=== PATIENT | male | born 1960 ===

== ENCOUNTER 2018-02-12 20:29 | Emergency (ER) | payer SELFPAY ==
[2018-02-12 20:44] VITALS: O2SAT 98
[2018-02-12 21:01] LABS: BASO # 0.1 K/uL (0.0-0.2); BASO % 0.5 % (0.0-2.0); EOS % 0.1 % (0.0-4.0); HEMOGLOBIN 14.4 g/dL (12.0-18.0); LYMPH # 0.8 K/uL (1.0-4.3); LYMPH % 6.8 % (20.0-40.0); MEAN CELL VOLUME 88.6 fL (80.0-94.0); MONO # 0.4 K/uL (0.0-0.8); MONO % 3.5 % (0.0-10.0); NEUT % 89.1 % (50.0-75.0); PLATELET COUNT 280 K/uL (130-400); RBC 4.65 Mil/uL (4.40-5.90); RED CELL DISTRIBUTION WIDTH 13.6 % (11.5-14.5); WHITE BLOOD COUNT 11.3 K/uL (4.8-10.8)
[2018-02-12 21:05] LABS: SQUAMOUS EPITHIAL < 1 /hpf (0-5); URINE BACTERIA RARE (<OCC); URINE BILIRUBIN NEGATIVE (NEGATIVE); URINE BLOOD 2+ (NEGATIVE); URINE CLARITY Clear (Clear); URINE COLOR Straw (YELLOW); URINE GLUCOSE (UA) NORMAL (Normal); URINE LEUKOCYTE ESTERASE NEG Leu/uL (Negative); URINE PROTEIN 1+ mg/dL (NEGATIVE); URINE UROBILINOGEN NORMAL mg/dL (0.2-1.0)
--- NOTE | 2018-02-12 21:05 | C.PDOC ---
History Of Present Illness 57 y/o male presents to ED for complaints of urinary retention. Patient reports he is unable to void since this morning. He isnow having significant abdominal discomfort. Denies nausea, vomiting, or dysuria. Patient states he had Hx of difficulty urinating 2 years ago but did not seek medical attention and after several days it resolved on its own. Time Seen by Provider: 02/12/18 20:42 Chief Complaint (Nursing): Male Genitourinary History Per: Patient History/Exam Limitations: no limitations Onset/Duration Of Symptoms: Hrs Current Symptoms Are (Timing): Still Present Quality Of Discomfort: "Pain" Associated Symptoms: denies: Fever, Chills, Nausea, Vomiting, Diarrhea Alleviating Factors: None Recent travel outside of the [place]: No Past Medical History Reviewed: Historical Data, Nursing Documentation, Vital Signs Vital Signs: Last Vital Signs Temp 97.9 F 02/12/18 20:35 Pulse 84 02/12/18 20:35 Resp 16 02/12/18 20:35 BP 153/95 H 02/12/18 20:35 Pulse Ox 98 02/12/18 21:19 - Medical History PMH: No Chronic Diseases Surgical History: No Surg Hx Family History: States: No Known Family Hx - Social History Hx Alcohol Use: Yes Hx Substance Use: No - Immunization History Hx Tetanus Toxoid Vaccination: No Hx Influenza Vaccination: No Hx Pneumococcal Vaccination: No Review Of Systems Constitutional: Negative for: Fever, Chills Gastrointestinal: Negative for: Nausea, Vomiting, Abdominal Pain, Diarrhea Genitourinary: Positive for: Other (Urinary retention ). Negative for: Dysuria Skin: Negative for: Rash Neurological: Negative for: Weakness, Numbness Physical Exam - Physical Exam Appears: Non-toxic, In Acute Distress Skin: Warm, Dry Eye(s): bilateral: Normal Inspection, PERRL Oral Mucosa: Moist Chest: Symmetrical, No Tenderness Cardiovascular: Rhythm Regular Respiratory: No Decreased Breath Sounds, No Rales, No Rhonchi, No Wheezing Gastrointestinal/Abdominal: Soft, Tenderness (Suprapubic midline), Other ( Bladder tender and distended; 700mL urine in bladder scan. ) Neurological/Psych: Oriented x3, Normal Speech, Normal Cognition Gait: Steady ED Course And Treatment - Laboratory Results Result Diagrams: 02/12/18 20:58 02/12/18 20:58 Lab Interpretation: No Acute Changes O2 Sat by Pulse Oximetry: 98 (RA) Pulse Ox Interpretation: Normal Progress Note: Cardenas catheter inserted without difficulty. Reevaluation Time: 21:13 Reassessment Condition: Improved Medical Decision Making Medical Decision Making: Ordered blood work and urinalysis. Disposition Counseled Patient/Family Regarding: Studies Performed, Diagnosis, Need For Followup, Rx Given - Disposition Referrals: Steve Velasco Jr., MD [Staff Provider] - Disposition: HOME/ ROUTINE Disposition Time: 21:16 Condition: IMPROVED Prescriptions: Tamsulosin [Flomax] 0.4 mg PO DAILY #30 cap Instructions: Urinary Retention Forms: [employer] (Montserratian) Print Language: KINYARWANDA - Clinical Impression Clinical Impression: Acute urinary retention - Scribe Statement The provider has reviewed the documentation as recorded by the Scribe Maryam Bender All medical record entries made by the Scribe were at my direction and personally dictated by me. I have reviewed the chart and agree that the record accurately reflects my personal performance of the history, physical exam, medical decision making, and the department course for this patient. I have also personally directed, reviewed, and agree with the discharge instructions and disposition.
[2018-02-12 21:16] LABS: ALB/GLOB RATIO 1.2 (1.0-2.1); ALBUMIN 4.6 g/dL (3.5-5.0); ALT/SGPT 48 U/L (21-72); AST/SGOT 34 U/L (17-59); BLOOD UREA NITROGEN 15 mg/dL (9-20); CALCIUM 9.6 mg/dl (8.6-10.4); GFR AFRICAN-AMERICAN > 60; GFR NON-AFRICAN AMERICAN > 60
[2018-02-12 21:21] LABS: BANDS 1 % (0-2); LYMPHOCYTE 3 % (20-40); MONOCYTE 4 % (0-10); NEUTROPHIL 87 % (50-75); PLATELET ESTIMATE NORMAL (NORMAL); REACTIVE LYMPHOCYTES 5 % (0-0); TOTAL CELLS COUNTED 100
[2018-02-12 21:39] VITALS: BP 136/74; PULSE 82; RESP 18; TEMP 98.3
== END 2018-02-12 21:33 | disposition home or self-care (01) ==
LOC: C.ER 20:29
DX: R33.9 Retention of urine, unspecified (principal)

== ENCOUNTER 2018-04-16 04:52 | Emergency (ER) | payer OTHER ==
[2018-04-16 06:38] LABS: URINE BILIRUBIN NEGATIVE (NEGATIVE); URINE BLOOD 3+ (NEGATIVE); URINE COLOR Straw (YELLOW); URINE GLUCOSE (UA) NORMAL (Normal); URINE LEUKOCYTE ESTERASE NEG Leu/uL (Negative); URINE PROTEIN NEGATIVE (NEGATIVE); URINE UROBILINOGEN NORMAL mg/dL (0.2-1.0)
[2018-04-16 06:48] LABS: URINE CLARITY Hazy (Clear)
--- NOTE | 2018-04-16 06:51 | C.PDOC ---
History Of Present Illness 58 year old male presents to the ED for evaluation of urinary retention, last time he urinated was at midnight. Patient reports he had prior history of urinary retention in January. At that time patient went to see his urologist Dr. Pruett in January, patient reports he did not follow the recommendations and has not taken flomax. Patient denies fever, chills, nausea, vomit, diarrhea, back pain. Time Seen by Provider: 04/16/18 04:53 Chief Complaint (Nursing): Male Genitourinary History Per: Patient History/Exam Limitations: no limitations Onset/Duration Of Symptoms: Days Severity: Severe Quality Of Discomfort: "Pain" Associated Symptoms: Urinary Symptoms Alleviating Factors: None Recent travel outside of the [place]: No Additional History Per: Patient Past Medical History Reviewed: Historical Data, Nursing Documentation, Vital Signs Vital Signs: Last Vital Signs Temp 98.2 F 04/16/18 05:01 Pulse 112 H 04/16/18 05:01 Resp 22 04/16/18 05:01 BP 202/113 H 04/16/18 05:01 Pulse Ox 98 04/16/18 06:51 - Medical History PMH: No Chronic Diseases Surgical History: No Surg Hx Family History: States: Unknown Family Hx - Social History Hx Alcohol Use: Yes Hx Substance Use: No - Immunization History Hx Tetanus Toxoid Vaccination: No Hx Influenza Vaccination: No Hx Pneumococcal Vaccination: No Review Of Systems Constitutional: Negative for: Fever, Chills Cardiovascular: Negative for: Chest Pain, Palpitations Respiratory: Negative for: Cough, Shortness of Breath Gastrointestinal: Positive for: Abdominal Pain. Negative for: Nausea, Vomiting Genitourinary: Positive for: Other (retention) Skin: Negative for: Rash Physical Exam - Physical Exam Appears: Non-toxic, In Acute Distress (moderate to severe due to pain) Skin: Normal Color, Warm, Dry, Diaphoretic Head: Atraumatic, Normacephalic Eye(s): bilateral: Normal Inspection Oral Mucosa: Moist Neck: Normal ROM, Supple Chest: Symmetrical Cardiovascular: Rhythm Regular Respiratory: Normal Breath Sounds, No Rales, No Rhonchi, No Wheezing Gastrointestinal/Abdominal: Soft, Tenderness (suprapubic), Distention, No Guarding, No Rebound Extremity: Normal ROM, No Tenderness, No Swelling Neurological/Psych: Oriented x3, Normal Speech Gait: Steady ED Course And Treatment O2 Sat by Pulse Oximetry: 98 (ON RA) Pulse Ox Interpretation: Normal Progress Note: Plan: - Flomax 0.4 mg PO. - Urine culture. - UA. - Cardenas Disposition Counseled Patient/Family Regarding: Studies Performed, Diagnosis, Need For Followup, Rx Given - Disposition Referrals: Steve Velasco Jr., MD [Staff Provider] - Disposition Time: 06:50 Additional Instructions: FOLLOW UP WITH YOUR UROLOGIST WITHIN 1 WEEK USE MEDICATION DIRECTED RETURN TO EMERGENCY ROOM IF SYMPTOMS WORSEN SEGUIMIENTO CON MARTIN UROLOGIST DENTRO DE 1 SEMANA USE MEDICAMENTOS SEGN LO INDICADO REGRESE AL DAVID DE EMERGENCIA SI LOS SNTOMAS EMPEORAN Prescriptions: Tamsulosin [Flomax] 0.4 mg PO DAILY #5 cap Instructions: Urinary Retention (DC) Forms: [employer] (Ugandan) Print Language: ALBANIAN - Clinical Impression Clinical Impression: Acute urinary retention - Scribe Statement The provider has reviewed the documentation as recorded by the Scribe Clifton Porter All medical record entries made by the Scribe were at my direction and personally dictated by me. I have reviewed the chart and agree that the record accurately reflects my personal performance of the history, physical exam, medical decision making, and the department course for this patient. I have also personally directed, reviewed, and agree with the discharge instructions and disposition.
--- NOTE | 2018-04-16 06:51 | C.PDOC ---
History Of Present Illness 58 year old male presents to the ED for evaluation of urinary retention, last time he urinated was at midnight. Patient reports he had prior history of urinary retention in January. At that time patient went to see his urologist Dr. Pruett in January, patient reports he did not follow the recommendations and has not taken flomax. Patient denies fever, chills, nausea, vomit, diarrhea, back pain. Time Seen by Provider: 04/16/18 04:53 Chief Complaint (Nursing): Male Genitourinary History Per: Patient History/Exam Limitations: no limitations Onset/Duration Of Symptoms: Days Current Symptoms Are (Timing): Still Present Severity: Moderate Quality Of Discomfort: "Pain" Associated Symptoms: Urinary Symptoms Alleviating Factors: None Recent travel outside of the [place]: No Additional History Per: Patient Past Medical History Reviewed: Historical Data, Nursing Documentation, Vital Signs Vital Signs: Last Vital Signs Temp 98.2 F 04/16/18 05:01 Pulse 112 H 04/16/18 05:01 Resp 22 04/16/18 05:01 BP 202/113 H 04/16/18 05:01 Pulse Ox 98 04/16/18 05:01 - Medical History PMH: No Chronic Diseases Surgical History: No Surg Hx Family History: States: Unknown Family Hx - Social History Hx Alcohol Use: Yes Hx Substance Use: No - Immunization History Hx Tetanus Toxoid Vaccination: No Hx Influenza Vaccination: No Hx Pneumococcal Vaccination: No Review Of Systems Constitutional: Negative for: Fever, Chills Cardiovascular: Negative for: Chest Pain, Palpitations Respiratory: Negative for: Cough, Shortness of Breath Gastrointestinal: Positive for: Abdominal Pain. Negative for: Nausea, Vomiting Genitourinary: Positive for: Other (retention) Musculoskeletal: Negative for: Back Pain Neurological: Negative for: Weakness, Numbness Physical Exam - Physical Exam Appears: Non-toxic, In Acute Distress (moderate to severe pain) Skin: Normal Color, Warm, Dry, Diaphoretic Head: Atraumatic, Normacephalic Eye(s): bilateral: Normal Inspection Oral Mucosa: Moist Neck: Normal ROM, Supple Chest: Symmetrical Cardiovascular: Rhythm Regular Respiratory: Normal Breath Sounds, No Rales, No Rhonchi, No Wheezing Gastrointestinal/Abdominal: Soft, Tenderness (suprapubic), Distention, No Guarding, No Rebound Extremity: Normal ROM, No Tenderness, No Swelling Neurological/Psych: Oriented x3, Normal Speech Gait: Steady ED Course And Treatment O2 Sat by Pulse Oximetry: 98 (ON RA) Pulse Ox Interpretation: Normal Progress Note: Plan: - Flomax 0.4 mg PO. - Urine culture. - UA. - Cardenas Disposition - Disposition - Scribe Statement The provider has reviewed the documentation as recorded by the Scribe Clifton Porter All medical record entries made by the Scribe were at my direction and personally dictated by me. I have reviewed the chart and agree that the record accurately reflects my personal performance of the history, physical exam, medical decision making, and the department course for this patient. I have also personally directed, reviewed, and agree with the discharge instructions and disposition.
[2018-04-16 07:11] VITALS: BP 148/56; PULSE 78; RESP 12; O2SAT 100
[2018-04-16 07:12] VITALS: TEMP 98.6
== END 2018-04-16 07:11 | disposition home or self-care (01) ==
LOC: C.ER 04:52
DX: R33.9 Retention of urine, unspecified (principal)

== ENCOUNTER 2018-06-04 18:45 | Emergency (ER) | payer OTHER ==
[2018-06-04 18:59] VITALS: BP 160/84; PULSE 80; RESP 20; TEMP 98.3; O2SAT 98
[2018-06-04 20:00] LABS: URINE BILIRUBIN NEGATIVE (NEGATIVE); URINE BLOOD 3+ (NEGATIVE); URINE CLARITY Clear (Clear); URINE COLOR Straw (YELLOW); URINE GLUCOSE (UA) NORMAL (Normal); URINE LEUKOCYTE ESTERASE NEG Leu/uL (Negative); URINE PROTEIN NEGATIVE (NEGATIVE); URINE UROBILINOGEN NORMAL mg/dL (0.2-1.0)
--- NOTE | 2018-06-04 20:16 | C.PDOC ---
History Of Present Illness 58 year old male presents to ED complaining of urinary retention for the past several hours prior to arrival. Patient reports he is unable to urinate. Denies fever, vomiting, abdominal pain, shortness of breath, weakness, numbness. Time Seen by Provider: 06/04/18 19:19 Chief Complaint (Nursing): Male Genitourinary History Per: Patient History/Exam Limitations: no limitations Onset/Duration Of Symptoms: Hrs Current Symptoms Are (Timing): Still Present Past Medical History Reviewed: Historical Data, Nursing Documentation, Vital Signs Vital Signs: Last Vital Signs Temp 98.3 F 06/04/18 18:57 Pulse 80 06/04/18 18:57 Resp 20 06/04/18 18:57 BP 160/84 H 06/04/18 18:57 Pulse Ox 98 06/04/18 20:20 Surgical History: No Surg Hx Family History: States: No Known Family Hx - Social History Hx Alcohol Use: Yes Hx Substance Use: No - Immunization History Hx Tetanus Toxoid Vaccination: No Hx Influenza Vaccination: No Hx Pneumococcal Vaccination: No Review Of Systems Except As Marked, All Systems Reviewed And Found Negative. Constitutional: Negative for: Fever Respiratory: Negative for: Shortness of Breath Gastrointestinal: Negative for: Vomiting, Abdominal Pain Genitourinary: Positive for: Other (urinary retention ) Neurological: Negative for: Weakness, Numbness Physical Exam - Physical Exam Appears: Non-toxic, No Acute Distress Skin: Warm, Dry Head: Atraumatic, Normacephalic Eye(s): bilateral: Normal Inspection Neck: Supple Chest: Symmetrical Cardiovascular: Rhythm Regular Respiratory: Normal Breath Sounds Gastrointestinal/Abdominal: Soft, No Tenderness, Distention (suprapubic ) Neurological/Psych: Oriented x3, Normal Speech, Normal Cognition ED Course And Treatment O2 Sat by Pulse Oximetry: 98 (RA) Pulse Ox Interpretation: Normal Medical Decision Making Medical Decision Making: Plan: * Urinalysis Disposition - Disposition Referrals: Steve Velasco Jr., MD [Staff Provider] - [facility] [Outside] Disposition: HOME/ ROUTINE Disposition Time: 20:18 Condition: GOOD Additional Instructions: Follow up with the medical doctor within 1-2 days. Return if worsened. 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 - Scribe Statement The provider has reviewed the documentation as recorded by the Scribe Elijah Santos All medical record entries made by the Russ were at my direction and personally dictated by me. I have reviewed the chart and agree that the record accurately reflects my personal performance of the history, physical exam, medical decision making, and the department course for this patient. I have also personally directed, reviewed, and agree with the discharge instructions and disposition.
== END 2018-06-04 20:24 | disposition home or self-care (01) ==
LOC: C.ER 18:45
DX: R33.9 Retention of urine, unspecified (principal)

== ENCOUNTER 2018-07-02 19:51 | Emergency (ER) | payer OTHER ==
[2018-07-02 20:11] VITALS: TEMP 97.8
[2018-07-02 20:20] VITALS: O2SAT 98
--- NOTE | 2018-07-02 20:51 | C.PDOC ---
History Of Present Illness 58-year-old male, presents to the emergency department with complaints of urinary retention. Patient states he has not passed urine since 15:00. Patient has not been able to follow with a urologist due to lack of insurance. Denies fever, nausea/vomiting or any other associated symptoms. No other complaints at this time. Time Seen by Provider: 07/02/18 20:19 Chief Complaint (Nursing): Male Genitourinary History Per: Patient History/Exam Limitations: no limitations Onset/Duration Of Symptoms: Hrs Current Symptoms Are (Timing): Still Present Past Medical History Reviewed: Historical Data, Nursing Documentation, Vital Signs Vital Signs: Last Vital Signs Temp 97.8 F 07/02/18 20:02 Pulse 100 H 07/02/18 20:02 Resp 18 07/02/18 20:02 BP 183/120 H 07/02/18 20:02 Pulse Ox 98 07/02/18 20:02 Family History: States: No Known Family Hx - Social History Hx Alcohol Use: Yes Hx Substance Use: No - Immunization History Hx Tetanus Toxoid Vaccination: No Hx Influenza Vaccination: No Hx Pneumococcal Vaccination: No Review Of Systems Constitutional: Negative for: Fever Gastrointestinal: Negative for: Vomiting Genitourinary: Positive for: Other (retention) Neurological: Negative for: Weakness, Numbness Physical Exam - Physical Exam Appears: Non-toxic, No Acute Distress Skin: Warm, Dry, No Rash Head: Atraumatic, Normacephalic Eye(s): bilateral: Normal Inspection, PERRL, EOMI Nose: Normal Oral Mucosa: Moist Lips: Normal Appearing Neck: Normal ROM Cardiovascular: Rhythm Regular, No Murmur Respiratory: Normal Breath Sounds, No Accessory Muscle Use Gastrointestinal/Abdominal: Soft, Distention Back: Normal Inspection Extremity: Normal ROM, No Deformity Neurological/Psych: Oriented x3, Normal Speech ED Course And Treatment O2 Sat by Pulse Oximetry: 98 Pulse Ox Interpretation: Normal (RA) Progress Note: Cardenas catheter inserted and 800mL urine collected. Pt felt immediate relief. He is refusing leg bag. Vital signs repeated and stable. Pt has seen Dr Velasco in the past and is due to make appointment for testing but has been waiting for insurance. The importance of follow up was reiterated to pt who will follow up with Dr Velasco or other as allowed by his insurance. Return precautions discussed and understood by pt Reassessment Condition: Improved Disposition Counseled Patient/Family Regarding: Diagnosis, Need For Followup, Rx Given - Disposition Referrals: Steve Velasco Jr., MD [Staff Provider] - Disposition: HOME/ ROUTINE Disposition Time: 21:28 Condition: STABLE Additional Instructions: Please follow up with Dr Velasco or any Urologist as allowed by your insurance Return to ER if worse Instructions: Urinary Retention (DC) Forms: [employer] (Ugandan) Print Language: EAST TIMORESE - Clinical Impression Clinical Impression: Acute urinary retention - Scribe Statement The provider has reviewed the documentation as recorded by the Scribe (Emily Andrews) All medical record entries made by the Scribe were at my direction and personally dictated by me. I have reviewed the chart and agree that the record accurately reflects my personal performance of the history, physical exam, medical decision making, and the department course for this patient. I have also personally directed, reviewed, and agree with the discharge instructions and disposition.
[2018-07-02 21:13] LABS: SQUAMOUS EPITHIAL < 1 /hpf (0-5); URINE BILIRUBIN NEGATIVE (NEGATIVE); URINE BLOOD 2+ (NEGATIVE); URINE CLARITY Clear (Clear); URINE COLOR Straw (YELLOW); URINE GLUCOSE (UA) NORMAL (Normal); URINE LEUKOCYTE ESTERASE NEG Leu/uL (Negative); URINE PROTEIN NEGATIVE (NEGATIVE); URINE UROBILINOGEN NORMAL mg/dL (0.2-1.0)
[2018-07-02 21:23] VITALS: BP 139/89; PULSE 85; RESP 16
== END 2018-07-02 21:40 | disposition home or self-care (01) ==
LOC: C.ER 19:51
DX: R33.9 Retention of urine, unspecified (principal)

== ENCOUNTER 2018-07-07 11:53 | Emergency (ER) | payer OTHER ==
[2018-07-07 12:27] VITALS: BMI 30.2
[2018-07-07 12:43] VITALS: RESP 18
--- NOTE | 2018-07-07 13:30 | C.PDOC ---
History Of Present Illness 58 year old male present so the ED urinary retention since this morning. He reports his last urination prior to 9am today. On arrival patient appears very uncomfortable, states this is the 5th incidence of similar symptoms. Patient notes he has tried to see urology but due to insurance, has been unable to get an appointment. He describes pain as severe. Denies any associated nausea, vomiting, fever or chills. Time Seen by Provider: 07/07/18 12:52 Chief Complaint (Nursing): Male Genitourinary History Per: Patient History/Exam Limitations: no limitations Onset/Duration Of Symptoms: Hrs Current Symptoms Are (Timing): Still Present Severity: Severe Quality Of Discomfort: "Pain" Past Medical History Reviewed: Historical Data, Nursing Documentation, Vital Signs Vital Signs: Last Vital Signs Temp 99.0 F 07/07/18 12:27 Pulse 97 H 07/07/18 12:27 Resp 18 07/07/18 12:27 BP 196/126 H 07/07/18 12:27 Pulse Ox 98 07/07/18 12:27 Family History: States: Unknown Family Hx - Social History Hx Alcohol Use: Yes Hx Substance Use: No - Immunization History Hx Tetanus Toxoid Vaccination: No Hx Influenza Vaccination: No Hx Pneumococcal Vaccination: No Review Of Systems Except As Marked, All Systems Reviewed And Found Negative. Constitutional: Negative for: Fever, Chills Gastrointestinal: Positive for: Abdominal Pain. Negative for: Nausea, Vomiting Genitourinary: Positive for: Other (Urinary retention) Physical Exam - Physical Exam Appears: Non-toxic, In Acute Distress (appears very uncomfortable) Skin: Warm, Dry, No Rash Head: Atraumatic, Normacephalic Eye(s): bilateral: Normal Inspection Oral Mucosa: Moist Neck: Normal ROM Chest: Symmetrical Cardiovascular: Rhythm Regular, No Murmur Respiratory: Normal Breath Sounds, No Rales, No Rhonchi, No Wheezing Gastrointestinal/Abdominal: Tenderness (to suprapubic region), Distention (abdomen appears firm and distended) Back: No CVA Tenderness, No Vertebral Tenderness Extremity: Bilateral: Atraumatic, Normal ROM Neurological/Psych: Oriented x3, Normal Speech Gait: Steady ED Course And Treatment O2 Sat by Pulse Oximetry: 98 (RA) Pulse Ox Interpretation: Normal Medical Decision Making Medical Decision Making: Impression: Urinary retention Plan: 16Fr Cardenas inserted by MARLEN Saucedo. Initial residual volume 750cc urine. Progress/Updates: [address] Km Phelan who states patient will see the patient in his office. Can do Self-pay. Recommends flomax. On re-examination, patient is resting comfortably in no acute distress. Patient reports improvement of symptoms. Note the patient does not want leg bag to go home with. I explain the reason for leg bag and that retention can recur but he declined. Patient feels comfortable going home and will be discharged. Patient given follow up instructions. Instructed to return to ER if symptoms worsen or new symptoms arise. Disposition Counseled Patient/Family Regarding: Diagnosis, Need For Followup, Rx Given - Disposition Referrals: Kaleb Phelan MD [Staff Provider] - Disposition: HOME/ ROUTINE Disposition Time: 13:35 Condition: STABLE Additional Instructions: Ve a goyo al urlogo Dr. Km Phelan en holcomb oficina. Tendrs que pagar por la visita. 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 - Scribe Statement The provider has reviewed the documentation as recorded by the Scribe (Krissy Huynh) All medical record entries made by the Scribe were at my direction and personally dictated by me. I have reviewed the chart and agree that the record accurately reflects my personal performance of the history, physical exam, medical decision making, and the department course for this patient. I have also personally directed, reviewed, and agree with the discharge instructions and disposition.
[2018-07-07 14:05] LABS: SQUAMOUS EPITHIAL < 1 /hpf (0-5); URINE BACTERIA RARE (<OCC); URINE BILIRUBIN NEGATIVE (NEGATIVE); URINE BLOOD 3+ (NEGATIVE); URINE CLARITY Clear (Clear); URINE COLOR Straw (YELLOW); URINE GLUCOSE (UA) NORMAL (Normal); URINE LEUKOCYTE ESTERASE NEG Leu/uL (Negative); URINE PROTEIN NEGATIVE (NEGATIVE); URINE UROBILINOGEN NORMAL mg/dL (0.2-1.0)
[2018-07-07 14:37] VITALS: BP 149/91; PULSE 63; TEMP 98.7
[2018-07-07 17:01] VITALS: O2SAT 98
== END 2018-07-07 14:40 | disposition home or self-care (01) ==
LOC: C.ER 11:53
DX: R33.9 Retention of urine, unspecified (principal)

== ENCOUNTER 2018-09-04 10:25 | Day surgery (SDC) | payer OTHER ==
[2018-08-31 13:52] VITALS: BMI 26.6
[2018-09-04] MEDS ORDERED: Gentamicin 80 mg in 0.9% NS 160 MG/200 ML BAG IVPB ONE (12:47)
[2018-09-04] MEDS ORDERED: Ciprofloxacin 400mg/200ml D5W 400 MG/200 ML BAG IVPB ONE (12:47)
[2018-09-04] MEDS ORDERED: Lidocaine 2% Jelly (Uro-Jet) ONE (12:47)
[2018-09-04] MEDS ORDERED: Midazolam 2 MG/2 ML VIAL ONE (12:55)
[2018-09-04] MEDS ORDERED: Propofol 10 mg/ml Inj (20 ML) ONE (12:56)
[2018-09-04] MEDS ORDERED: Lidocaine Hydrochloride 5 ML INJ ONE (13:27)
--- NOTE | 2018-09-04 13:36 | PCM.SURG1 ---
Surgeon's Initial Post Op Note - Surgeon's Notes Surgeon: Rod Horticulture Supervisor: RENAY Type of Anesthesia: General LMA Anesthesia Administered By: Staff Pre-Operative Diagnosis: BPH/Elevated psa Operative Findings: Enlarged prostate w merrill Post-Operative Diagnosis: Same Operation Performed: Cysto/us guided prostate bx Specimen/Specimens Removed: 12 core bx Estimated Blood Loss: EBL {In ML}: 0 Blood Products Given: N/A Drains Used: No Drains Post-Op Condition: Good Date of Surgery/Procedure: 09/04/18 Time of Surgery/Procedure: 13:37
[2018-09-04] MEDS ORDERED: HYDROmorphone 0.5 mg/0.5 ml ISec IVP PRN (13:38)
[2018-09-04 15:00] VITALS: BP 134/87; PULSE 59; RESP 15; TEMP 97.5; O2SAT 100
--- NOTE | 2018-09-04 23:34 | OP ---
PROCEDURE DATE: 09/04/2018 PREOPERATIVE DIAGNOSIS: Benign prostatic hyperplasia, elevated PSA. POSTOPERATIVE DIAGNOSIS: Benign prostatic hyperplasia with bladder outlet obstruction, elevated PSA. PROCEDURE: Transrectal guided prostate biopsy and cystopanendoscopy. DESCRIPTION OF PROCEDURE: The patient was asked to sign a detailed informed consent prior to the procedure. He was apprised of all risks, complications, and limitations of this procedure. He agreed to accept the risks, brought into the room and a time-out was taken accordingly to rules and regulations of [facility]. The patient received prophylactic antibiotics and was draped and prepped in a lithotomy position. He received a Betadine enema. Multiple transrectal biopsies were taken (12) and sent for pathological analysis using ultrasound guidance. The patient was then re-draped and prepped and was cystoscoped with #21 Storz panendoscope. The cystoscopy showed a large friable prostate with significant outlet obstruction. There was +3 trabeculation of the bladder. There was no evidence urothelial tumors or stones. Both ureteral orifices effluxed clear urine. Based on the above findings on biopsy, we will try further therapy and if biopsy is negative for cancer, the patient should be placed on Flomax and Proscar. Steve Velasco MD
== END 2018-09-04 14:59 | disposition home or self-care (01) ==
LOC: C.SDS 10:25
PROVIDERS: ATTEND Urology
DX: N40.1 Benign prostatic hyperplasia with lower urinary tract symptoms (principal); N32.0 Bladder-neck obstruction
CPT/HCPCS: 55700; 76942; 88305; 88342; J0744; J1580

== ENCOUNTER 2018-09-26 05:03 | Emergency (ER) | payer OTHER ==
[2018-09-26 05:04] VITALS: BMI 26.6
[2018-09-26 05:16] VITALS: RESP 18; O2SAT 99
--- NOTE | 2018-09-26 06:20 | C.PDOC ---
History Of Present Illness 58 year old male presents to the ED c/o fever associated with cough, runny nose, generalized body aches. Patient states his is sick with similar symptoms. Patient denies rash, headache, nausea, vomit, diarrhea, abdominal, dysuria, hematuria. Time Seen by Provider: 09/26/18 06:10 Chief Complaint (Nursing): Flu-like Symptoms History Per: Patient History/Exam Limitations: no limitations Onset/Duration Of Symptoms: Days Location Of Pain: Throat, Sinus/es Sick Contacts (Context): Family Member(s) Associated Symptoms: Fever, Cough, Myalgias Ear Symptoms: Bilateral: None Recent travel outside of the [place]: No Past Medical History Reviewed: Historical Data, Nursing Documentation, Vital Signs Vital Signs: Last Vital Signs Temp 98.5 F 09/26/18 05:13 Pulse 72 09/26/18 05:13 Resp 18 09/26/18 05:13 BP 129/87 09/26/18 05:13 Pulse Ox 99 09/26/18 05:13 - Medical History PMH: Fractures (right leg-casted only) Denies: Chronic Kidney Disease Surgical History: No Surg Hx Family History: States: Unknown Family Hx - Social History Hx Alcohol Use: Yes Hx Substance Use: No - Immunization History Hx Tetanus Toxoid Vaccination: No Hx Influenza Vaccination: No Hx Pneumococcal Vaccination: No Review Of Systems Constitutional: Positive for: Fever. Negative for: Chills ENT: Positive for: Nose Discharge, Nose Congestion Cardiovascular: Negative for: Chest Pain Respiratory: Positive for: Cough, Sputum. Negative for: Shortness of Breath, Wheezing Gastrointestinal: Negative for: Nausea, Vomiting, Abdominal Pain Genitourinary: Negative for: Dysuria Skin: Negative for: Rash Neurological: Negative for: Headache Physical Exam - Physical Exam Appears: Non-toxic, No Acute Distress Skin: Normal Color, Warm, Dry, No Rash Head: Atraumatic, Normacephalic Eye(s): bilateral: Normal Inspection Ear(s): Bilateral: Normal Oral Mucosa: Moist Throat: Normal, No Erythema, No Exudate Neck: Normal ROM, Supple Chest: Symmetrical Cardiovascular: Rhythm Regular, No Friction Rub, No Murmur Respiratory: Normal Breath Sounds, No Rales, No Rhonchi, No Stridor, No Wheezing Gastrointestinal/Abdominal: Soft, No Tenderness, No Guarding, No Rebound Extremity: Normal ROM, No Tenderness, No Swelling Neurological/Psych: Oriented x3, Normal Speech, Normal Cognition Gait: Steady ED Course And Treatment O2 Sat by Pulse Oximetry: 99 (ON RA) Pulse Ox Interpretation: Normal Medical Decision Making Medical Decision Making: Plan: * Influenza A B Disposition - Disposition Referrals: [facility] [Outside] Disposition: HOME/ ROUTINE Disposition Time: 06:45 Condition: STABLE Additional Instructions: Follow up with the medical doctor within 1-2 days without fail Return if worsened Prescriptions: Oseltamivir Cap [Tamiflu] 75 mg PO BID #9 cap Instructions: Flu, Adult (DC) Forms: [employer] (Sri Lankan) Print Language: SETSWANA - Clinical Impression Clinical Impression: Influenza - PA / METER READER / Resident Statement MD/DO has reviewed & agrees with the documentation as recorded. - Scribe Statement The provider has reviewed the documentation as recorded by the Scribe Clifton Porter All medical record entries made by the Scribe were at my direction and personally dictated by me. I have reviewed the chart and agree that the record accurately reflects my personal performance of the history, physical exam, medical decision making, and the department course for this patient. I have also personally directed, reviewed, and agree with the discharge instructions and disposition.
[2018-09-26 06:48] VITALS: BP 127/76; PULSE 88; TEMP 98.3
== END 2018-09-26 07:19 | disposition home or self-care (01) ==
LOC: SUPCPDRO 05:03 → C.ER 05:03
DX: J11.1 Influenza due to unidentified influenza virus with other respiratory manifestations (principal)

== ENCOUNTER 2019-02-04 13:23 | Emergency (ER) | payer OTHER ==
[2019-02-04 13:23] VITALS: BMI 26.6
[2019-02-04 13:35] VITALS: TEMP 98.2
[2019-02-04 14:21] LABS: URINE BILIRUBIN NEGATIVE (NEGATIVE); URINE BLOOD 2+ (NEGATIVE); URINE CLARITY Clear (Clear); URINE COLOR Straw (YELLOW); URINE GLUCOSE (UA) NORMAL (Normal); URINE LEUKOCYTE ESTERASE NEG Leu/uL (Negative); URINE PROTEIN NEGATIVE (NEGATIVE); URINE UROBILINOGEN NORMAL mg/dL (0.2-1.0)
--- NOTE | 2019-02-04 14:26 | C.PDOC ---
History Of Present Illness 58 year old male with PMHx of enlarged prostate presents to the ED complaining of urinary retention for 3 hours. Reports he has 5 previous visits to the ED for same complaint, last one over 6 months ago. States he had a little bit of pain on urination yesterday but it resolved. Also reports he was previously taking Flomax but his Urologist Dr. Velasco changed it to another medication he cannot recall. Urologist: Dr. Velasco Time Seen by Provider: 02/04/19 13:37 Chief Complaint (Nursing): Male Genitourinary History Per: Patient History/Exam Limitations: no limitations Onset/Duration Of Symptoms: Hrs Current Symptoms Are (Timing): Still Present Past Medical History Reviewed: Historical Data, Nursing Documentation, Vital Signs Vital Signs: Last Vital Signs Temp 98.2 F 02/04/19 13:34 Pulse 117 H 02/04/19 13:34 Resp 22 02/04/19 13:34 BP 174/120 H 02/04/19 13:34 Pulse Ox 98 02/04/19 13:34 Primary Care Provider: Steve Velasco Jr. - Medical History PMH: Fractures (right leg-casted only) Denies: Chronic Kidney Disease Surgical History: No Surg Hx Family History: States: No Known Family Hx - Social History Hx Alcohol Use: Yes Hx Substance Use: No - Immunization History Hx Tetanus Toxoid Vaccination: No Hx Influenza Vaccination: No Hx Pneumococcal Vaccination: No Review Of Systems Except As Marked, All Systems Reviewed And Found Negative. Constitutional: Negative for: Fever, Chills Genitourinary: Positive for: Other (urinary retention ). Negative for: Dysuria Physical Exam - Physical Exam Appears: Non-toxic, No Acute Distress Skin: Warm, Dry Head: Normacephalic Eye(s): bilateral: Normal Inspection, PERRL, EOMI Nose: Normal Oral Mucosa: Moist Neck: Supple Chest: Symmetrical Cardiovascular: Rhythm Regular Respiratory: Normal Breath Sounds, No Rales, No Rhonchi, No Wheezing Gastrointestinal/Abdominal: Soft, No Tenderness Neurological/Psych: Oriented x3, Normal Speech Gait: Steady ED Course And Treatment - Laboratory Results Lab Results: Urine Color Straw (YELLOW) 02/04/19 14:05 Urine Clarity Clear (Clear) 02/04/19 14:05 Urine pH 5.0 (5.0-8.0) 02/04/19 14:05 Ur Specific [place] 1.006 (1.003-1.030) 02/04/19 14:05 Urine Protein Negative mg/dL (NEGATIVE) 02/04/19 14:05 Urine Glucose (UA) Normal mg/dL (Normal) 02/04/19 14:05 Urine Ketones Negative mg/dL (NEGATIVE) 02/04/19 14:05 Urine Blood 2+ (NEGATIVE) H 02/04/19 14:05 Urine Nitrate Negative (NEGATIVE) 02/04/19 14:05 Urine Bilirubin Negative (NEGATIVE) 02/04/19 14:05 Urine Urobilinogen Normal mg/dL (0.2-1.0) 02/04/19 14:05 Ur Leukocyte Esterase Neg [place]/uL (Negative) 02/04/19 14:05 Urine WBC (Auto) < 1 /hpf (0-5) 02/04/19 14:05 Urine RBC (Auto) 7 /hpf (0-3) H 02/04/19 14:05 O2 Sat by Pulse Oximetry: 98 (RA) Pulse Ox Interpretation: Normal Medical Decision Making Medical Decision Making: Initial Impression: Urinary retention Initial Plan: - Urine culture - UA - Peters Catheter placement Progress note: 3:49 PM - Pt feels better after peters placed. But pt is insisting on removing of peters--states this is what they did 1 yr ago. Peters was removed as per his wishes; however, he refuses to wait in ED to see if able to urinate. I advised pt he is at risk of returning for repeat peters. Pt will sign AMA form. Disposition Counseled Patient/Family Regarding: Studies Performed, Diagnosis, Need For Followup - Disposition Referrals: Steve Velasco Jr., MD [Staff Provider] - Disposition: AGAINST MEDICAL ADVICE Disposition Time: 15:50 Condition: IMPROVED Additional Instructions: Ms. Lenz, thank you for letting us take care of you today. Return to the ER if you are unable to urinate and we can place another peters. Continue your current medications. Follow up with your urologist this week for a re-evaluation. Instructions: Urinary Retention (DC) Forms: [facility] (Turkmen) Print Language: ITALIAN - POA Present On Arrival: None - Clinical Impression Clinical Impression: Acute urinary retention - Scribe Statement The provider has reviewed the documentation as recorded by the Scribe Karmen Caoe All medical record entries made by the Russ were at my direction and personally dictated by me. I have reviewed the chart and agree that the record accurately reflects my personal performance of the history, physical exam, medical decision making, and the department course for this patient. I have also personally directed, reviewed, and agree with the discharge instructions and disposition.
[2019-02-04 14:42] VITALS: BP 136/84; PULSE 72; RESP 18
[2019-02-04 15:52] VITALS: O2SAT 98
== END 2019-02-04 16:00 | disposition left against medical advice (07) ==
LOC: C.ER 13:23
DX: R33.9 Retention of urine, unspecified (principal)

== ENCOUNTER 2019-02-04 20:23 | Emergency (ER) | payer OTHER | END 2019-02-04 21:20 | disposition home or self-care (01) | LOC: C.ER 20:23 | DX: R33.9 Retention of urine, unspecified (principal) ==